=== PATIENT | male | born 1975 | race Caucasian/White ===

== ENCOUNTER 2018-07-08 10:30 | Observation (INO) | payer BC, SELFPAY ==
[2018-07-08] VITALS (13 sets, daily range): BP systolic 95–146; BP diastolic 65–113; PULSE 63–100; RESP 10–24; TEMP 36.6–36.8; O2SAT 96–100; BMI 24.4
--- NOTE | 2018-07-08 10:33 | RAD_ITS ---
STUDY: X-RAY CHEST REASON FOR EXAM: Male, 42 years old. Chest pain. TECHNIQUE: Single AP portable view of the chest. COMPARISON: None. FINDINGS: The lungs are clear and expanded. Scattered calcified granulomas. There is no demonstrated pleural abnormality. Normal size heart. Normal mediastinum and esvin. Normal visualized pulmonary arteries. Normal visualized aortic arch and descending thoracic aorta. Normal visualized thoracic spine. Normal visualized ribs, clavicles, and shoulders. There is no demonstrated abnormality of the visualized soft tissue structures of the upper abdomen. RAD/Chest 1 View (Portable) IMPRESSION: Normal x-ray examination of the chest. Electronically Signed: Tay Mejia MD at 11:22 EDT Tel [phone], Service support ,
--- NOTE | 2018-07-08 10:33 | EKG12_ITS ---
Test Reason : CP Blood Pressure : / mmHG Vent. Rate : 086 BPM Atrial Rate : 086 BPM P-R Int : 126 ms QRS Dur : 084 ms QT Int : 344 ms P-R-T Axes : 068 053 050 degrees QTc Int : 411 ms Sinus rhythm with occasional Premature ventricular complexes Minimal voltage criteria for LVH, may be normal variant Nonspecific ST abnormality Abnormal ECG Confirmed by SALLY SAMANIEGO, MOIRA ([id number]), editor at large ESTRADA SAINI ([id number]) on 07/09/2018 1:30:46 PM Referred By: Chavo Feliciano Confirmed By:MOIRA ZAVALA MD
[2018-07-08 10:56] LABS: Absolute Lymphocyte Count 1.66 X10^3/ul (0.83-4.51); Absolute Neutrophil Count 4.5 X10^3/uL (2.0-7.7); Basophil# 0.01 X10^3/uL; Basophil% 0.2 % (0-1); Eosinophil# 0.06 X10^3/uL; Eosinophils% 0.9 % (0-5); Hematocrit 50.4 % (40-54); Hemoglobin 17.3 g/dl (13.0-16.5); Lymphocyte # 1.66 X10^3/ul (4.0); Mean Corp Hgb Conc 34.3 g/gl (32-36); Mean Corpuscular Hgb 31.4 pg (27.0-32.0); Mean Corpuscular Volume 91.5 fL (80-94); Mean Platelet Vol. 9.5 fl (6.2-12.0); Neutrophil # 4.51 X10^3/uL (2.7-7.7); Neutrophil % 67.7 % (47-70); Platelet Count 271 K/mm3 (150-450); RBC Distribution Width CV 12.2 % (11.6-14.6); RBC Distribution Width SD 40.8 fl (35.1-43.9); Red Blood Count 5.51 M/mm3 (4.6-6.2); White Blood Count 6.7 K/mm3 (4.4-11.0)
[2018-07-08 10:58] LABS: POSITIVE COUNT NO; POSITIVE DIFFERENTIAL NO; POSITIVE MORPHOLOGY NO
[2018-07-08 11:12] LABS: Anion Gap 9 (5-15); BUN 12 mg/dL (7-18); BUN/Creat Ratio 10.5 RATIO (10-20); Calcium,Total 9.3 mg/dL (8.5-10.1); Chloride 105 mmol/L (98-107); Creatinine, Serum 1.14 mg/dL (0.70-1.30); EST Glomerular Filtration Rate 74 mL/min (>60); Est Glom Filt Rate - Afr Amer 90 mL/min (>60); Estimated Creatinine Clearance 91.71 ml/min; Glucose 96 mg/dL (74-106); Potassium 4.2 mmol/L (3.5-5.1); Sodium Level 142 mmol/L (136-145)
[2018-07-08] MEDS: 0.9% Normal Saline 1,000 ML 150 ML IV (12:13)
[2018-07-08] MEDS: Aspirin 81 MG TAB.CHEW 324 MG PO (12:13)
[2018-07-08 12:24] LABS: D-Dimer Quantitative (DVT/PE) 0.31 FEU/ug/m (0.27-0.49)
--- NOTE | 2018-07-08 12:39 | ED.DCSUM_ITS ---
- ER Visit Summary Date of Service: 07/08/18 Chief Complaint: [Chest pain] History of Present Illness: The patient is a 42 M [presents the emergency department complaint chest pain that he has had off and on over the last 2 weeks. Patient states that he at times will wake up with discomfort in the morning. Patient also states that at times his right arm will fall asleep typically in the middle the night. Patient does feel short of breath with it at times. He denies any diaphoresis. He denies nausea or vomiting. Patient has not had discomfort like this before. Patient states that his father had heart attack in his early 50s. Patient also with recent travel to [facility].] Physical Examination: [HEENT-PERRLA, EOMI. Cranial nerves II through XII grossly intact. TMs clear. Mucous membranes moist. No adenopathy. Cardiovascular-regular rate and rhythm without murmur or ectopy Lungs-clear to auscultation, chest wall stable without crepitus or subcu emphysema Abdomen-normoactive bowel sounds, soft, nontender, no rebound or rigidity, no peritoneal signs. Extremities-intact ?4, normal range of motion, normal pulses, atraumatic] Test Results: [EKG obtained on arrival shows sinus rhythm with a ventricular rate of 86 bpm with some LVH and nonspecific ST changes. When compared with prior EKG from 2004 no significant changes noted. CBC with differential obtained was normal. Chemistries were normal. Troponin was less than 0.015. D -dimer was normal at 0.31.] Emergency Department Course and Treatment: [Patient was given aspirin and treated with sublingual nitroglycerin which he believes seemed to have helped his pain.] Treatment Plan: Admit for further workup and evaluation [] Disposition: [Admit] Impression: [Chest pain-rule out acute cardiac syndrome] This note was generated with [employer] dictation software. It may contain incorrect words, spelling, and punctuation that were not noted in review of the chart prior to signing ED Disposition - Plan for ED Patient: Chief Complaint: Chest Pain Referrals: Jovanny Clifford [Primary Care Provider] -
--- NOTE | 2018-07-08 12:58 | NURSING ---
PCU OBS ROSAURA MARY
--- NOTE | 2018-07-08 13:19 | PCM.HP.STD ---
Problem List (1) Chest pain Status: Acute History of Present Illness Date of Admission: 07/08/18 Chief Complaint: chest pain. The patient is a 42 year old M presents with intermittent chest pain. Patient states that over the past few mornings he is awoken with midsternal chest pain that does not radiate. States his never had this problem before. Patient denies any other associated symptoms other than perhaps some shortness of breath today. Patient does endorse that he had some right arm numbness going and it only occurs when he lies on his right side and when he gets up to get off and then the numbness resolves. Patient was evaluated in the emergency room and his workup was unremarkable. Patient received aspirin. We are asked to admit this patient for further cardiac evaluation by the emergency room. [] Past Medical History Allergies No Known Allergies Allergy (Verified 07/08/18 10:31) Home Medications: Ambulatory Orders Medication Instructions Recorded No Known/Unobtainable [No Known 02/01/17 Home Medications] Smoking Status: Never smoker Tobacco Use: Non-smoker Alcohol: None Drugs: None - *Family History Paternal History Items: Heart Disease, Stroke Review of Systems Constitutional: Denies: Anorexia, Chills, Fever Eyes: Denies: Blurred vision, Double vision HEENT: Denies: Head Aches, Sinus Congestion, Sinus Drainage Cardiovascular: Reports: Chest Pain. Denies: Edema Respiratory: Reports: Shortness of Breath. Denies: Cough Gastrointestinal: Denies: Abdominal Pain, Nausea, Vomiting Genitourinary: Denies: Dysuria Musculoskeletal: Denies: Joint Pain, Joint Tenderness Skin: Denies: Rash, Wounds Neurological: Denies: Numbness, Tingling, Focal weakness Psychiatric: Denies: Anxiety, Depression Hematologic/ Lymphatic: Denies: Easy Bruising, Easy Bleeding, Hx of blood clot Comment: All review of systems are negative except as mentioned in the history of present illness and the other review of systems. VTE Information - Inpt Only VTE Present on Admission: No VTE Mechan Device Prophylaxis: None VTE Pharm Prophylaxis ordered?: No Reason prophylaxis not ordered:: Procedure Not Indicated Patient Problems: Active and Suspected Problems Chest pain (Acute) - Physical Exam General: Alert, Cooperative, No apparent distress HEENT: Atraumatic, Normocephalic Oral: Moist Mucosa, No Gingival or Mucosal Lesions/ Ulcerations Neck: No Nodes, Thyroid Normal Size and Texture Lungs: Clear to auscultation, Normal air movement, No rhonchi, No wheeze Cardiovascular: Regular rate, Regular Rhythm, Normal S1, Normal S2 Abdomen: Bowel Sounds Present, Soft, Non Tender, Non-Distended, No Hepato-splenomegaly Extremities: No edema, No Calf Tenderness Skin: No rashes, No breakdown Psych/Mental Status: Normal Affect, Appropriate Vital Signs Temp Pulse Resp BP Pulse Ox 36.6 C 76 10 L 95/65 98 07/08/18 10:30 07/08/18 12:53 07/08/18 12:53 07/08/18 12:53 07/08/18 12:53 Assessment/Plan All Active Problems Chest pain (Acute) 1. Chest pain Atypical Heart score of 2, CHRISTIANE score of 0 Patient does have a LVH which is been present from previous EKGs, but that along with his family history of heart disease I think would warrant the patient being brought in for further cardiac evaluation with a stress test. Patient has good performance status and is able to engage in physical activity at home without eliciting any chest pain. The right arm numbness of the patient has it all related with his chest pain is likely related with paresthesias from lying on that side. If stress test is negative then would discharge the patient. Code Visit OBSV E&M: 10689 Initial observation care L2
--- NOTE | 2018-07-08 13:22 | HP.PCM_ITS ---
Problem List (1) Chest pain Status: Acute History of Present Illness Date of Admission: 07/08/18 Chief Complaint: chest pain. The patient is a 42 year old M presents with intermittent chest pain. Patient states that over the past few mornings he is awoken with midsternal chest pain that does not radiate. States his never had this problem before. Patient denies any other associated symptoms other than perhaps some shortness of breath today. Patient does endorse that he had some right arm numbness going and it only occurs when he lies on his right side and when he gets up to get off and then the numbness resolves. Patient was evaluated in the emergency room and his workup was unremarkable. Patient received aspirin. We are asked to admit this patient for further cardiac evaluation by the emergency room. [] Past Medical History Allergies No Known Allergies Allergy (Verified 07/08/18 10:31) Home Medications: Ambulatory Orders Medication Instructions Recorded No Known/Unobtainable [No Known 02/01/17 Home Medications] Smoking Status: Never smoker Tobacco Use: Non-smoker Alcohol: None Drugs: None - *Family History Paternal History Items: Heart Disease, Stroke Review of Systems Constitutional: Denies: Anorexia, Chills, Fever Eyes: Denies: Blurred vision, Double vision HEENT: Denies: Head Aches, Sinus Congestion, Sinus Drainage Cardiovascular: Reports: Chest Pain. Denies: Edema Respiratory: Reports: Shortness of Breath. Denies: Cough Gastrointestinal: Denies: Abdominal Pain, Nausea, Vomiting Genitourinary: Denies: Dysuria Musculoskeletal: Denies: Joint Pain, Joint Tenderness Skin: Denies: Rash, Wounds Neurological: Denies: Numbness, Tingling, Focal weakness Psychiatric: Denies: Anxiety, Depression Hematologic/ Lymphatic: Denies: Easy Bruising, Easy Bleeding, Hx of blood clot Comment: All review of systems are negative except as mentioned in the history of present illness and the other review of systems. VTE Information - Inpt Only VTE Present on Admission: No VTE Mechan Device Prophylaxis: None VTE Pharm Prophylaxis ordered?: No Reason prophylaxis not ordered:: Procedure Not Indicated Patient Problems: Active and Suspected Problems Chest pain (Acute) - Physical Exam General: Alert, Cooperative, No apparent distress HEENT: Atraumatic, Normocephalic Oral: Moist Mucosa, No Gingival or Mucosal Lesions/ Ulcerations Neck: No Nodes, Thyroid Normal Size and Texture Lungs: Clear to auscultation, Normal air movement, No rhonchi, No wheeze Cardiovascular: Regular rate, Regular Rhythm, Normal S1, Normal S2 Abdomen: Bowel Sounds Present, Soft, Non Tender, Non-Distended, No Hepato- splenomegaly Extremities: No edema, No Calf Tenderness Skin: No rashes, No breakdown Psych/Mental Status: Normal Affect, Appropriate Vital Signs Temp Pulse Resp BP Pulse Ox 36.6 C 76 10 L 95/65 98 07/08/18 10:30 07/08/18 12:53 07/08/18 12:53 07/08/18 12:53 07/08/18 12:53 Assessment/Plan All Active Problems Chest pain (Acute) 1. Chest pain * Atypical * Heart score of 2, CHRISTIANE score of 0 * Patient does have a LVH which is been present from previous EKGs, but that along with his family history of heart disease I think would warrant the patient being brought in for further cardiac evaluation with a stress test. * Patient has good performance status and is able to engage in physical activity at home without eliciting any chest pain. * The right arm numbness of the patient has it all related with his chest pain is likely related with paresthesias from lying on that side. * If stress test is negative then would discharge the patient. Code Visit OBSV E&M: 27270 Initial observation care L2
--- NOTE | 2018-07-08 13:39 | EKG12_ITS ---
Test Reason : ADMIT CP EKG Blood Pressure : / mmHG Vent. Rate : 075 BPM Atrial Rate : 075 BPM P-R Int : 128 ms QRS Dur : 096 ms QT Int : 382 ms P-R-T Axes : 056 054 051 degrees QTc Int : 426 ms Sinus rhythm with marked sinus arrhythmia Minimal voltage criteria for LVH, may be normal variant Borderline ECG When compared with ECG of 28-SEP-2005 23:52, No significant change was found Confirmed by SALLY SAMANIEGO, MOIRA ([id number]), website/blog editor ESTRADA SAINI ([id number]) on 07/09/2018 2:16:51 PM Referred By: Chavo Feliciano Confirmed By:MOIRA ZAVALA MD
[2018-07-09] VITALS (7 sets, daily range): BP systolic 114–131; BP diastolic 67–77; PULSE 74–102; RESP 16–18; TEMP 36.6–36.8; O2SAT 96–97
--- NOTE | 2018-07-09 05:55 | EKG12_ITS ---
Test Reason : AM EKG Blood Pressure : / mmHG Vent. Rate : 062 BPM Atrial Rate : 062 BPM P-R Int : 138 ms QRS Dur : 098 ms QT Int : 382 ms P-R-T Axes : 057 058 054 degrees QTc Int : 387 ms Normal sinus rhythm Normal ECG When compared with ECG of 08-JUL-2018 13:41, MANUAL COMPARISON REQUIRED, DATA IS UNCONFIRMED Confirmed by SALLY SAMANIEGO, MOIRA ([id number]), state editor ESTRADA SAINI ([id number]) on 07/15/2018 9:34:16 AM Referred By: Chavo Feliciano Confirmed By:MOIRA ZAVALA MD
[2018-07-09 06:44] LABS: Absolute Lymphocyte Count 1.92 X10^3/ul (0.83-4.51); Absolute Neutrophil Count 4.1 X10^3/uL (2.0-7.7); Basophil# 0.01 X10^3/uL; Basophil% 0.1 % (0-1); Eosinophil# 0.13 X10^3/uL; Eosinophils% 1.9 % (0-5); Hematocrit 44.8 % (40-54); Hemoglobin 15.4 g/dl (13.0-16.5); Lymphocyte # 1.92 X10^3/ul (4.0); Lymphocyte % 28.5 % (19-41); Mean Corp Hgb Conc 34.4 g/gl (32-36); Mean Corpuscular Hgb 31.9 pg (27.0-32.0); Mean Corpuscular Volume 92.8 fL (80-94); Mean Platelet Vol. 9.4 fl (6.2-12.0); Monocyte% 8.9 % (0-10); Neutrophil # 4.05 X10^3/uL (2.7-7.7); Neutrophil % 60.3 % (47-70); Platelet Count 264 K/mm3 (150-450); RBC Distribution Width CV 12.1 % (11.6-14.6); RBC Distribution Width SD 40.9 fl (35.1-43.9); Red Blood Count 4.83 M/mm3 (4.6-6.2); White Blood Count 6.7 K/mm3 (4.4-11.0)
[2018-07-09 06:45] LABS: POSITIVE COUNT NO; POSITIVE DIFFERENTIAL NO; POSITIVE MORPHOLOGY NO
[2018-07-09 06:53] LABS: Partial Thromboplast Time 28.7 Seconds (24.1-36.2); Prothrombin Time (Protime)PT. 13.3 SECONDS (11.7-14.9)
[2018-07-09 07:01] LABS: Anion Gap 7 (5-15); BUN 13 mg/dL (7-18); BUN/Creat Ratio 11.1 RATIO (10-20); Calcium,Total 8.5 mg/dL (8.5-10.1); Chloride 107 mmol/L (98-107); Cholesterol 203 mg/dL (200); Creatinine, Serum 1.17 mg/dL (0.70-1.30); EST Glomerular Filtration Rate 72 mL/min (>60); Est Glom Filt Rate - Afr Amer 87 mL/min (>60); Estimated Creatinine Clearance 89.35 ml/min; Glucose 99 mg/dL (74-106); High Density Lipoprotein 51 mg/dL; Potassium 4.1 mmol/L (3.5-5.1); Sodium Level 142 mmol/L (136-145); Triglycerides 112 mg/dL; Very Low Density Lipoprotein 22 mg/dL (5-40)
--- NOTE | 2018-07-09 09:00 | STE_ITS ---
Reason For Study: CHEST PAIN Stress Results Protocol: Stress Echocardiogram Maximum Predicted HR: 177 bpm Target HR: 150 bpm% Maximum Pr edicted HR: 99 % DurationHeart Rate Stage (mm:ss) (bpm) BP BASELINE 86 140/86 HILARIO PROTOCOL- STAGE 1 3:00 11 3 144/78 HILARIO PROTOCOL- STAGE 2 3:00 12 7 142/70 HILARIO PROTOCOL- STAGE 3 3:00 14 2 150/72 HILARIO PROTOCOL- STAGE 4 3:00 17 6 142/74 RECOVERY 97 140/80 Stress Duration: 12:00 mm:ss Maximum Stress HR: 176 bpm Baseline Echocardiogram Findings The estimated ejection fraction is 65 %. Stress Echo Wall motion Data Resting WMIntermediate WMStress WM Resting Wall Motion Wall Motion Stress No regional wall motion No regional wall motion abnormalities noted. abnormalities noted. EKG Data Normal intervals are noted. The patient exercised according to the regular Hilario protocol for a total duration of 12:01. The maximum heart rate attained was 176 beats per minute. This was 99% of maximum predicted heart rate. The patient exercised into stage 5 of the Hilario protocol. At peak exercise, upsloping ST changes only were noted, which did not meet the criteria for ischemia. No clinical angina was noted. No arrhythmias noted. Interpretation Summary The estimated ejection fraction is 65 %. Normal, adequate, treadmill echocardiogram. Negative for ischemia by EKG and echocardiographic criteria. No anginal symptoms noted. No arrhythmias noted. Appropriate blood pressure response to exercise. Average exercise capacity for age. Final LVEF is 75%. Test terminated due to target heart rate achieved and fatigue. No complications. Ordering Physician: Chavo Feliciano Referring Physician: Chavo Feliciano Performed By: Shauna Aguilar RDCS
--- NOTE | 2018-07-09 15:39 | PN_ITS ---
Patient Problems: Active and Suspected Problems Chest pain (Acute) Subjective: No further chest pain. Vitals/I&O's: Vital Signs Temp Pulse Resp BP Pulse Ox 36.7 C 102 H 16 131/77 H 96 07/09/18 11:56 07/09/18 12:08 07/09/18 11:56 07/09/18 11:56 07/09/18 11:56 Oxygen Delivery Method Room Air Weight: 81.647 kg Body Mass Index (BMI) 24.4 Intake and Output for Last 24 Hours 07/07/18 07/08/18 07/09/18 23:59 23:59 23:59 Intake Total 720 / 720 240 / 240 Balance 720 / 720 240 / 240 General: Alert, No apparent distress HEENT: Atraumatic, Normocephalic Oral: Moist Mucosa, No Gingival or Mucosal Lesions/ Ulcerations Neck: No Nodes, Thyroid Normal Size and Texture Lungs: Clear to auscultation, Normal air movement, No rhonchi, No wheeze Cardiovascular: Regular rate, Regular Rhythm, Normal S1, Normal S2, No murmurs Laboratory Results 07/08/18 16:24: Troponin I < 0.015 07/09/18 06:18: Sodium 142, Potassium 4.1, Chloride 107, Carbon Dioxide 28.0, Anion Gap 7, BUN 13, Creatinine 1.17, Estim Creat Clear Calc 89.35, Est GFR ( MDRD) Af Amer 87, Est GFR (MDRD) Non-Af 72, BUN/Creatinine Ratio 11.1, Glucose 99, Calcium 8.5, Triglycerides 112, Cholesterol 203 H, LDL Cholesterol 130, VLDL Cholesterol 22, HDL Cholesterol 51 07/09/18 06:18: WBC 6.7, RBC 4.83, Hgb 15.4, Hct 44.8, MCV 92.8, MCH 31.9, MCHC 34.4, RDW 12.1, RDW Differential 40.9, Plt Count 264, MPV 9.4, Immature Gran % ( Auto) 0.300, Neut % (Auto) 60.3, Lymph % (Auto) 28.5, [place] % (Auto) 8.9, Eos % ( Auto) 1.9, Baso % (Auto) 0.1, Absolute Neuts (auto) 4.1, Absolute Lymphs (auto) 1.92, Total Counted Not Reportable 07/09/18 06:18: PT 13.3, INR 1.0, APTT 28.7 Current Medications Acetaminophen (Tylenol) 650 mg PO Q6H PRN PRN PRN Reason: Mild Pain (1-3)/Temp > 100.7 F Magnesium Hydroxide (Milk Of Magnesia) 30 ml PO DAILY PRN PRN Reason: Constipation Morphine Sulfate () 2 - 4 mg IV Q4H PRN PRN PRN Reason: MOD-SEVERE PAIN (4-10/10) Morphine Sulfate () 2 - 4 mg IV Q4H PRN PRN PRN Reason: MOD-SEVERE PAIN (4-10/10) Ondansetron HCl (Zofran) 4 mg IV Q8H PRN PRN PRN Reason: NAUSEA Oxycodone HCl (Oxyir) 5 - 10 mg PO Q4H PRN PRN PRN Reason: MOD-SEVERE PAIN (4-10/10) Sodium Chloride () 5 - 30 ml IV UD PRN PRN Reason: SALINE FLUSH Medical Necessity - Tobacco Use Smoking Status: Never smoker Tobacco Use: Non-smoker Assessment/Plan All Active Problems Chest pain (Acute) 1. Chest pain * Atypical * Heart score of 2, CHRISTIANE score of 0 * Patient does have a LVH which is been present from previous EKGs, but that along with his family history of heart disease I think would warrant the patient being brought in for further cardiac evaluation with a stress test. * Patient has good performance status and is able to engage in physical activity at home without eliciting any chest pain. * The right arm numbness of the patient has it all related with his chest pain is likely related with paresthesias from lying on that side. * If stress test is negative then would discharge the patient. * stress done, results pending. Code Visit OBSV E&M: 14299 Subsequent observation care L2
--- NOTE | 2018-07-09 16:22 | DCINST_ITS ---
- Discharge Diagnoses Current Active Problems: Current Active and Chronic Problems Chest pain (Acute) You will use the following diet at home:: No restrictions Your food should be the consistency of: Regular Instructions: ED Chest Pain NonCardiac Allergies/Adverse Reactions: Allergies No Known Allergies Allergy (Verified 07/08/18 10:31) Medications to take at Discharge No Known/Unobtainable [No Known Home Medications] 02/01/17 Primary Care Physician: Jovanny Clifford [Primary Care Provider] - Within 2 Weeks Test Results: Test results from this visit will be discussed in further detail at your follow- up appointment, if applicable. Proposed Discharge Date: 07/09/18
--- NOTE | 2018-07-09 16:23 | PCM.DC.SUM ---
Discharge Date and Diagnosis - Problem List Patient Problems: Active and Suspected Problems Chest pain (Acute) Date of Admission: 07/08/18 Date of Discharge: 07/09/18 - Primary Discharge Diagnosis Active and Suspected Problems Chest pain (Acute) Hospital Course and Treatment Imaging Results: 07/09/18 09:00 Stress Test Echo w/o Contrast [ECHO] Urgent Clinical Impression(s) from Imaging Studies Chest X-Ray 07/08/18 10:33 IMPRESSION: Normal x-ray examination of the chest. Electronically Signed: Tay Mejia MD at 11:22 EDT Tel [phone], Service support , Operations: None Procedures: Stress test Summary of Care Provided: The patient is a 42 year old M presents with chest pain. Chest pain was atypical and had an intake heart score of 2 and CHRISTIANE score of 0. Patient underwent a stress test which he felt fine. Results of which are still pending at the time of this dictation but if that is negative then the patient will be discharged home. If positive then cardiology be consulted and further addendum will be made at that time. [] Discharge Diet: No Restrictions Discharge Activity: Return to Normal Activity Home Medications: Medications to take at Discharge No Known/Unobtainable [No Known Home Medications] 02/01/17 Primary Care Physician: Jovanny Clifford [Primary Care Provider] - Within 2 Weeks Patient Instructions: ED Chest Pain NonCardiac Disposition: Home Patient Condition:: Good Medical Necessity - Tobacco Use Smoking Status: Never smoker Tobacco Use: Non-smoker Meaningful Use Info Meaningful Use Diagnoses (Choose all that apply): None applicable Code Visit OBSV E&M: 22578 Observation care discharge
== END 2018-07-09 17:10 | disposition home or self-care (01) ==
LOC: ED 12:48 → PCU 13:08
PROVIDERS: Emergency Provider Emergency Medicine; Family Provider Family Medicine; PCP Family Medicine
DX: R07.89 Other chest pain (principal); R20.0 Anesthesia of skin; Z82.49 Family history of ischemic heart disease and other diseases of the circulatory system; R06.00 Dyspnea, unspecified; R94.31 Abnormal electrocardiogram [ECG] [EKG]
CPT/HCPCS: 36415; 71045; 80048; 80061; 84484; 85025; 85379; 85610; 85730; 93005; 93017; 93350; 96360; 99218; 99284; J7030; A4216; G0378